=== PATIENT | female | born 1970 | race Caucasian/White ===

== ENCOUNTER 2017-05-21 11:25 | Emergency (ER) | payer OTHER ==
[2017-05-21] MEDS ORDERED: TDAP ADULT 0.5 ML INJ (BOOSTRIX) IM ONE (11:44)
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
[2017-05-21 13:17] VITALS: RESP 20
[2017-05-21 15:32] VITALS: BP 120/77; PULSE 88; TEMP 97.7; O2SAT 98
== END 2017-05-21 15:32 | disposition home or self-care (01) ==
LOC: EDUNIT#
PROC: 0HQEXZZ Repair Left Lower Arm Skin, External Approach (ICD-10-PCS; principal; 2017-05-21)
PROC: 0HQLXZZ Repair Left Lower Leg Skin, External Approach (ICD-10-PCS; 2017-05-21)
DX: S22.000A Wedge compression fracture of unspecified thoracic vertebra, initial encounter for closed fracture (principal); S81.012A Laceration without foreign body, left knee, initial encounter; S51.012A Laceration without foreign body of left elbow, initial encounter; S89.91XA Unspecified injury of right lower leg, initial encounter; S79.912A Unspecified injury of left hip, initial encounter; T14.8 Other injury of unspecified body region; Z85.3 Personal history of malignant neoplasm of breast; Z23 Encounter for immunization; V13.4XXA Pedal cycle driver injured in collision with car, pick-up truck or van in traffic accident, initial encounter; Y92.410 Unspecified street and highway as the place of occurrence of the external cause; Y99.8 Other external cause status; Y93.55 Activity, bike riding